=== PATIENT | male | born 2000 | race Two or more races ===

== ENCOUNTER 2024-11-23 16:49 | Emergency (ER) | payer MEDICAID, OTHER ==
[~2024-11-23] VITALS: Ht 180.3 cm; Wt 65.0 kg
[2024-11-23] MEDS: SODIUM CHLORIDE 0.9% 1,000 ML IV ONE ×2 (17:22→18:54)
--- NOTE | 2024-11-23 17:23 | ED.PDOC ---
GI ASSESSMENT HPI Comments HPI: 24y M who presents to the ED for chief complaint of nausea and vomiting. - pt has been having nausea and vomiting for the past 2 days - pt has not been able to keep anything down since and states he has not eaten for the past 2 days - pt has history of DM and states he has been checking his blood sugar and notes it has read HIGH - pt states 1 hours prior, he took 10 units of insulin and notes he rechecked his blood sugar which read 47 - pt states he attempted to eat afterwards but states he felt nauseous and came to the ED for further evaluation - pt in the ED, states he is having R sided chest wall pain radiating to the L chest - pt accu check in the ED reads at 74 - pt otherwise denies any other symptoms at this time. Past Medical history: DM 1 Past Surgical history: denies Medications: insulin Allergies: denies Social History: denies ETOH, denies tobacco use, denies drug use LUBNA: HPI: William Historian. REVIEW OF SYSTEMS: CONSTITUTIONAL: Denies acute: fever, diaphoresis, chills, HEAD: Denies acute: headache, photophobia Eyes: Denies acute: Double vision, vision loss, eye pain, eye discharge. EARS: Denies acute: tinnitus, hearing loss, ear discharge, ear pain, THROAT: Denies acute: sore throat, swelling, difficulty swallowing , pain with swallowing, change in voice. NECK: Denies acute: neck pain, neck swelling, stiff neck. HEART: Denies acute : palpitations, LUNGS: Denies acute: SOB, wheezing, cough, hemoptysis ABDOMEN: Denies acute: abdominal pain, diarrhea, melena , hematemesis, hematochezia SKIN: Denies acute: rash, redness, lesions, itchiness. EXTREMITIES: Denies acute: calf pain, numbness, tingling, weakness, denies pain in extremity. Denies acute: Low back pain. Neuro: Denies acute: focal neurological deficit, motor or sensory focal neurological deficit, tremors, seizure like activity, confusion, , change in mental status, loss of bowel or bladder function, cauda equina like symptoms. : Denies acute: dysuria, hematuria, flank pain, increase in urinary frequency. PSYCH: Denies acute: hallucination, suicidal ideation, homicidal ideation. PHYSICAL EXAM: General: -----mild---acute distress, awake and alert. Head: normocephalic, atraumatic. Neck: supple, trachea is midline, no swelling. Throat: Normal phonation. Eyes:, no erythema, no purulent discharge, no proptosis, no icterus. Heart: regular rate, regular rhythm, no significant murmur appreciated. Lungs: no apparent respiratory distress, Able to speak in full sentences. No wheezing, no rhonchi, no crackles. No stridors Clear to auscultation bilaterally. Abdomen: non tender to palpation, non distended, soft, no guarding, no rebound, + bowel sounds. Neuro: Awake, Alert, oriented to name, self, situation, follows commands GCS=15. Speech is normal. Skin: no petechia, no purpura, no cyanosis, non-pale, not jaundice. Lower extremities: --no - Pitting edema no deformity, no focal swelling, no calf TTP. Makes eye contact. moves all four extremities. Face: no apparent facial droop. No nuchal rigidity, Kernig's sign, Brudzinski's sign, no meningeal signs. ED COURSE: Chief Complaint: Nausea/Vomiting Time Seen by MD: 17:23 Reviewed Notes: Nurses Notes, Medications, Allergies Allergies: Coded Allergies: NO KNOWN ALLERGIES (Unverified , 11/23/24) Information Source: Patient Mode of Arrival: Wheelchair Brought in by: self Was a procedure done? Was a procedure done?: No GI differential Dx Differential Diagnosis: Other (DDX include but not limited to diverticulitis, colitis, gastroenteritis, acute abdomen, SBO, enteritis, constipation, volvulus, appendicitis, Gallbladder disease, choledocolithiasis, ascending cholangitis, pancreatitis, intraAbdominal mass/neoplasm, hepatitis, UTI, pylonephritis, kidney stone, aneurysm, dissection, Inflammatory bowel disease, gastroparesis, ischemic bowel.) X-Ray, Labs, Meds, VS Vital Signs Date Time Temp Pulse Resp B/P (MAP) Pulse Ox O2 Delivery O2 Flow Rate FiO2 11/23/24 19:40 60 16 97 Room Air* 0 21 11/23/24 19:40 97.8 60 16 123/72 (89) 97 97.8 11/23/24 17:13 98.3 64 14 120/78 (92) 98 98.3 Lab Test 11/23/24 20:38 11/23/24 20:31 11/23/24 19:50 11/23/24 17:27 Range/Units Urine Color Yellow Yellow Urine Clarity Clear Clear Urine pH 6.5 5.0-9.0 Urine Specific [place] 1.031 1.001-1.035 Urine Protein Trace H Negative Urine Ketones 2+ H Negative Urine Blood Negative Negative /uL Urine Nitrite Negative Negative Urine Bilirubin Negative Negative Urine Urobilinogen Normal Negative mg/dL Urine Leukocyte Esterase Negative Negative /uL Urine RBC 3 0 - 3 /hpf Urine Microscopic WBC 1 0-3 /HPF Urine Squamous Epithelial Cells None seen <5 /hpf Urine Bacteria None seen None Seen /hpf Urine Mucus Few None Seen Urine Glucose 4+ H Normal mg/dL Urine Opiates Screen Neg NEGATIVE Urine Fentanyl Screen Neg NEGATIVE Urine Barbiturates Screen Neg NEGATIVE Urine Phencyclidine Screen Neg NEGATIVE Urine Amphetamines Screen Neg NEGATIVE Urine Benzodiazepines Screen Neg NEGATIVE Urine Cocaine Screen Neg NEGATIVE Urine Cannabinoids Screen Pos NEGATIVE POC Glucose 68 L 70-106 mg/dl Lactic Acid Level 1.1 3.1 *H 0.4-2.0 mmol/L White Blood Count 11.5 H 4.4-10.8 10^3/uL Red Blood Count 6.16 H 4.5-5.90 10^6/uL Hemoglobin 19.4 H 13.5-17.5 g/dL Hematocrit 56.1 H 41.0-53.0 % Mean Corpuscular Volume 91.0 80.0-100.0 fL Mean Corpuscular Hemoglobin 31.5 28.0-32.0 pg Mean Corpuscular Hemoglobin Concent 34.7 32.0-36.0 g/dL Red Cell Distribution Width 13.2 11.8-14.3 % Platelet Count 301 140-450 10^3/uL Mean Platelet Volume 7.3 6.9-10.8 fL Neutrophils (%) (Auto) 65.4 37.0-80.0 % Lymphocytes (%) (Auto) 26.3 10.0-50.0 % Monocytes (%) (Auto) 7.2 0.0-12.0 % Eosinophils (%) (Auto) 0.7 0.0-7.0 % Basophils (%) (Auto) 0.4 0.0-2.0 % Neutrophils # (Auto) 7.5 1.6-8.6 10 ^3/uL Lymphocytes # (Auto) 3.0 0.4-5.4 10 ^3/uL Monocytes # (Auto) 0.8 0-1.3 10 ^3/uL Eosinophils # (Auto) 0.1 0-0.8 10 ^3/uL Basophils # (Auto) 0 0-0.2 10 ^3/uL Nucleated Red Blood Cells 0.7 % Sodium Level 141 136-145 mmol/L Potassium Level 4.0 3.5-5.1 mmol/L Chloride Level 104 98-107 mmol/L Carbon Dioxide Level 29 20-31 mmol/L Anion Gap 8 5-15 Blood Urea Nitrogen 14 9-23 mg/dL Creatinine 1.08 0.700-1.30 mg/dL Glomerular Filtration Rate Calc 98 >90 mL/min BUN/Creatinine Ratio 13.0 10.0-20.0 Serum Glucose 60 L 74-106 mg/dL Calcium Level 11.7 H 8.7-10.4 mg/dL Total Bilirubin 1.1 H 0.2-1.0 mg/dL Aspartate Amino Transferase (AST) 23 13-40 U/L Alanine Aminotransferase (ALT) 24 7-40 U/L Alkaline Phosphatase 105 46-116 U/L Total Protein 8.5 H 5.7-8.2 g/dL Albumin 5.8 H 3.2-4.8 g/dL Lipase 29 12-53 U/L Test 11/23/24 17:20 11/23/24 17:01 Range/Units POC Glucose 123 H 74 70-106 mg/dl [place] [id number] Ph: [phone] DIAGNOSTIC IMAGING Diagnostic Imaging Report : [id number] Signed PATIENT: ISRA CALVO ACCT: [id number] UNIT: [id number] : 2000 LOC: ER ROOM / BED: / AGE / SEX: 24 / M ADM STATUS: REG ER SERVICE [id number] ORDERING PHYSICIAN: MARKIE MCMAHAN DO PROCEDURE(s): CXRP - CHEST PORTABLE REASON: weak n/v ORDER NUMBER(s): [id number], ACCESSION NUMBER(s): [id number] CHEST RADIOGRAPH Indication: weak n/v Technique: Single frontal view of the chest was obtained Comparison: None FINDINGS: There are no infiltrates or effusions. There is slightly prominent Peripheral markings. Trachea is midline galileo sharp mainstem bronchi are well aerated mediastinal contours and heart are unremarkable IMPRESSION: 1. Slightly prominent Peripheral markings. If more imaging is required I would recommend PA and lateral or CT of the chest ATED BY: JAS THOMAS MD DICTATED DATE/TIME: 11/23/241739 SIGNED BY: JAS THOMAS MD SIGNED DATE/TIME: 11/23/241739 CC: Time of 1ST Reevaluation: 21:02 (Patient tolerating p.o. intake well. No nausea or vomiting at this time. Patient states that his symptoms have completely resolved and he feels much better and ready to be discharged home) Reevaluation 1ST: Resolved Time of 2ND Reevaluation: 00:00 Reevaluation 2ND: Resolved Patient Education/Counseling: Diagnosis, Treatment Family Education/Counseling: Other Comments Patient presented with the above HPI.------workup was initiated. patient was found with the above mentioned diagnosis. the following medications were ordered: please refer to order lists of meds and tests obtained by myself Dr. Mcmahan. Patient ED course and VS have been stabilized. Patient has been reassessed in the ED and remained in a stable condition. Pertinent incidental findings were discussed with the patient and/or family. Patient/family voices understanding and is agreeable with plan. Patient has been observed in the ED adequate length of time to insure improvement/stability. Escalation of care considered: Consideration of escalation to observation or admission Patient was given fluids and antiemetics. Patient blood sugar was rechecked numerous times. Patient tolerating p.o. intake well. Patient's symptoms have resolved prior to discharge. Patient was DISCHARGED home in a stable condition. All the reports of any imaging studies that were ordered by myself were reviewed by myself. Departure 1 Departure Time of Disposition: 21:29 Impression: Primary Impression: Nausea and vomiting Additional Impressions: Hypoglycemic episode in patient with diabetes mellitus Dehydration Disposition: HOME / SELF CARE / HOMELESS Condition: Stable Additional Instructions: Additional discharge instructions: You MUST follow-up with your primary care/family doctor in 1 to 2 days. If you are unable to see your primary care/family doctor, please return to our emergency room for re-assessment and re-evaluation in 1 to 2 days. Return to the emergency room here in our facility or to the nearest ER [facility] if your symptoms change or worsen. CONSULTATIONS: you MUST Follow-up for consultation as soon as possible with: -gastroenterology in 1-2 days. Endocrinology in 1-2 days. Please call for appointment. You MUST call the consultants office yourself to make an appointment. You may need to arrange that through your insurance and/or your primary/family doctor. If you are unable to see the home energy consultant in 1 to 2 days, you must return to our emergency room (or any other ER of your choice) for re-assessment and re- evaluation. Adequate fluid hydration. Monitor blood sugar closely. Discharged With: Self Critical Care Note Critical Care Time?: Yes (35 min-critical care time only) I personally scribed for MARKIE MCMAHAN DO ([email or web address]) on 11/23/24 at 17:23. Electronically submitted by Lazaro Rojas ([email or web address]). I personally scribed for MARKIE MCMAHAN DO ([email or web address]) on 11/23/24 at 19:41. Electronically submitted by Lazaro Rojas ([email or web address]). MARKIE MCMAHAN DO Nov 23, 2024 17:23
[2024-11-23] MEDS: ONDANSETRON HCL 4 MG/2 ML VIAL IV ONE (17:38)
--- NOTE | 2024-11-23 17:43 | DVH ---
CHEST RADIOGRAPH Indication: weak n/v Technique: Single frontal view of the chest was obtained Comparison: None FINDINGS: There are no infiltrates or effusions. There is slightly prominent Peripheral markings. Trachea is midline galileo sharp mainstem bronchi are well aerated mediastinal contours and heart are unremarkable IMPRESSION: 1. Slightly prominent Peripheral markings. If more imaging is required I would recommend PA and late ral or CT of the chest
[2024-11-23 17:44] LABS: Basophils # (auto) 0 10 ^3/uL (0-0.2); Basophils % (auto) 0.4 % (0.0-2.0); Eosinophils # (auto) 0.1 10 ^3/uL (0-0.8); Neutrophils # (auto) 7.5 10 ^3/uL (1.6-8.6); White Blood Cell 11.5 10^3/uL (4.4-10.8)
[2024-11-23 17:49] LABS: Eosinophils % (auto) 0.7 % (0.0-7.0); Hemoglobin 19.4 g/dL (13.5-17.5); Lymphocytes % (auto) 26.3 % (10.0-50.0); Mean Corpuscular Hemoglobin 31.5 pg (28.0-32.0); Mean Corpuscular Hgb Conc. 34.7 g/dL (32.0-36.0); Monocytes # (auto) 0.8 10 ^3/uL (0-1.3); Monocytes % (auto) 7.2 % (0.0-12.0); Neutrophils % (auto) 65.4 % (37.0-80.0); Nucleated Red Blood Cells % 0.7 %; Platelet Count (auto) 301 10^3/uL (140-450); Red Blood Cells 6.16 10^6/uL (4.5-5.90); Red Cell Distribution Width 13.2 % (11.8-14.3)
[2024-11-23 18:00] LABS: Hematocrit 56.1 % (41.0-53.0)
[2024-11-23 18:10] LABS: Alanine Aminotransferase 24 U/L (7-40); Alkaline Phosphatase 105 U/L (46-116); Anion Gap 8 (5-15); Aspartate Aminotransferase 23 U/L (13-40); Bilirubin, Total 1.1 mg/dL (0.2-1.0); Blood Urea Nitrogen 14 mg/dL (9-23); Carbon Dioxide 29 mmol/L (20-31); Chloride 104 mmol/L (98-107); Sodium 141 mmol/L (136-145)
[2024-11-23 18:14] LABS: Albumin 5.8 g/dL (3.2-4.8); Calcium 11.7 mg/dL (8.7-10.4); Glucose 60 mg/dL (74-106); Total Protein 8.5 g/dL (5.7-8.2)
[2024-11-23 18:22] LABS: Lactic Acid w/Reflex 3.1 mmol/L (0.4-2.0)
[2024-11-23 18:32] LABS: Lipase 29 U/L (12-53)
[2024-11-23 19:40] VITALS: BP 123/72; PULSE 60; RESP 16; TEMP 97.8; O2SAT 97
[2024-11-23 20:38] LABS: Urine Bacteria None Seen /hpf (None Seen)
[2024-11-23 20:53] LABS: Urine Blood Negative /uL (Negative); Urine Clarity Clear (Clear); Urine Color Yellow (Yellow); Urine Mucus FEW (None Seen); Urine Protein, UAD TRACE (Negative); Urine Specific Gravity 1.031 (1.001-1.035); Urine Squamous Epithelial Cell None Seen /hpf (<5); Urine Urobilinogen Normal (Negative); Urine WBC 1 /HPF (0-3); Urine pH 6.5 (5.0-9.0)
[2024-11-23 21:16] LABS: Amphetamine Screen, Urine Neg (NEGATIVE); Barbiturate Scree,Urine Neg (NEGATIVE); Benzodiazephine Screen, Urine Neg (NEGATIVE); Cannabinoid Screen, Urine Pos (NEGATIVE); Cocaine Screen, Urine Neg (NEGATIVE); Opiate Scree,Urine Neg (NEGATIVE); Phencyclidine Screen, Urine Neg (NEGATIVE)
[2024-11-23] MEDS ORDERED: NITROGLYCERIN 0.4 MG SL TAB SL ONE (21:30)
== END 2024-11-23 21:51 | disposition home or self-care (01) ==
LOC: ER 16:49
DX: R11.2 Nausea with vomiting, unspecified (principal); E10.649 Type 1 diabetes mellitus with hypoglycemia without coma; E86.0 Dehydration; Z79.4 Long term (current) use of insulin; Z79.899 Other long term (current) drug therapy
CPT/HCPCS: 36415; 71045; 80053; 80307; 81001; 82947; 83605; 83690; 85025; 96361; 96374; 99284; J2405; J7030; 82962; 96360